=== PATIENT | male | born 1955 | race Caucasian/White ===

== ENCOUNTER 2019-03-19 11:37 | Inpatient (IN) | payer OTHER ==
[~2019-03-19] VITALS: Ht 185.4 cm; Wt 101.2 kg
--- NOTE | ~2019-03-19 | CATHLAB ---
[facility] [address] [address] [place] [address] INVASIVE PROCEDURE REPORT Name: FRENCH HARDY Room #: 210-P ADM IN M.R.#: [id number] ������������� Admission: 03/19/19 ������������� Attend Phys: Neftaly Gramajo MD Discharge: ��� ������������� ��� Date of : 53 Date of Service: 03/20/19 0951 �� Report #: [id number] �������� ��������������������������������������������[id number] THIS REPORT FOR: //name// CC: Neftaly Alvarez PROCEDURE: Cardioversion. INDICATION: Atrial flutter. DESCRIPTION OF PROCEDURE: The potential benefits and risks of the procedure were discussed at length with the patient who understood. Full written and informed consent was obtained. The patient was sedated with intravenous Versed and fentanyl. 30 biphasic synchronous joules were applied to the chest with prompt conversion of atrial flutter to sinus rhythm. He remained in hemodynamically, electrically and neurologically stable condition following the procedure. ��������������������������������������������� ���������������������������������������� By: ��������������������������������������������� 0951 1342 Felice Cates MD, FACC /nt
[2019-03-19 11:37] VITALS: BP 153/116
[2019-03-19 12:35] LABS: BASOPHILS 0.4 % (0.0-2.0); EOSINOPHILS 1.4 % (0.0-3.0); HEMATOCRIT 43.2 % (42.0-52.0); HEMOGLOBIN 14.8 gm/dL (14.0-18.0); LYMPHOCYTES 16.3 % (24.0-44.0); MCH 33.7 pg (26.0-34.0); MCHC 34.3 g/dL (28.0-37.0); MCV 98.1 fL (80.0-100.0); MONOCYTES 9.4 % (1.0-8.0); PLATELET COUNT 178 thou/uL (150-400); POLYS 72.5 % (36.0-66.0); RBC 4.41 mil/uL (4.50-6.00); WBC 5.5 thou/uL (4.0-11.0)
[2019-03-19 12:47] LABS: ANION GAP 12 mmol/L (7-16); BUN 17 mg/dL (7-18); CALCIUM 9.1 mg/dL (8.5-10.1); CHLORIDE 107 mmol/L (98-107); CO2 23 mmol/L (21-32); GLUCOSE 95 mg/dL (74-106); POTASSIUM 4.1 mmol/L (3.5-5.1); SODIUM 142 mmol/L (136-145)
[2019-03-19 12:57] LABS: ALBUMIN 3.8 g/dL (3.4-5.0); MAGNESIUM 2.2 mg/dL (1.8-2.4); SGOT 35 U/L (15-37); SGPT 35 U/L (30-65); TOTAL BILIRUBIN 1.4 mg/dL (<0.1-1.0); TOTAL PROTEIN 7.8 g/dL (6.4-8.2); TROPONIN-I <0.06 ng/mL (<0.06)
[2019-03-19 13:52] VITALS: BP 122/81
[2019-03-19 13:53] VITALS: BP 143/93
[2019-03-19] MEDS ORDERED: COUMADIN 5 MG TA5 M1 PO (14:06)
[2019-03-19] MEDS ORDERED: LIPITOR 20 MG T20 M1 PO (14:07)
[2019-03-19 14:54] LABS: INR 2.7; PROTIME 28.5 Seconds (9.3-11.4)
[2019-03-19 15:00] VITALS: BP 145/80
--- NOTE | 2019-03-19 16:58 | 2DMMODE ---
[facility] [address] [place] [address] 2 D/M-MODE ECHOCARDIOGRAM Name: FRENCH HARDY Room #: 210-P ADM IN .R.#: [id number] ������������� Admission: 03/19/19 ������������� Attend Phys: Inocencio Valladares, Discharge: ��� ������������� ��� Date of : 53 Date of Service: 03/19/19 1657 �� Report #: [id number] �������� ��������������������������������������������[id number] THIS REPORT FOR: //name// APPROVED REPORT Study performed: 03/19/2019 15:28:12 EXAM: Comprehensive 2D, Doppler, and color-flow Echocardiogram Patient Location: In-Patient Room #: 210 Status: routine BSA: 2.21 HR: 106 bpm BP: 143/93 mmHg Rhythm: Atrial Fibrillation Other Information Study Quality: Good Indications Atrial Fibrillation 2D Dimensions RVDd: 40.95 mm IVSd: 17.48 (7-11mm) LVOT Diam: 22.17 (18-24mm) LVDd: 40.17 mm PWd: 9.64 (7-11mm) Ascending Ao: 34.47 (22-36mm) LVDs: 27.70 (25-40mm) Aortic Root: 41.70 mm Volumes Left Atrial Volume (Systole) Single Plane 4CH: 76.77 mL Single Plane 2CH: 90.97 mL LA ESV Index: 41.00 mL/m2 Aortic Valve AoV Peak Satish.: 1.24 m/s AO Peak Gr.: 9.56 mmHg LVOT Max P.52 mmHg LVOT Max V: 1.05 m/s SELWYN Vmax: 3.27 cm2 Pulmonary Valve PV Peak Satish.: 0.79 m/s PV Peak Gr.: 2.48 mmHg Tricuspid Valve [facility] [address] [address] 2 D/M-MODE ECHOCARDIOGRAM Name: FRENCH HARDY Room #: 210-P ADM IN ..#: [id number] ������������� Admission: 03/19/19 ������������� Attend Phys: Inocencio Valladares, Discharge: ��� ������������� ��� Date of : 53 Date of Service: 03/19/19 1657 �� Report #: [id number] �������� ��������������������������������������������[id number] TR Peak Satish.: 2.25 m/s TR Peak Gr.: 20.68 mmHg RVSP: 15.00 mmHg PA Pressure: 35.00 mmHg Left Ventricle The left ventricle is normal size. There is normal LV segmental wall motion. There is normal left ventricular wall thickness. The left ventricular systolic function is normal. The left ventricular ejection fraction is within the normal range. LVEF is 55-60%. This study is not technically sufficient to allow evaluation of the LV diastolic function due to atrial fibrillation. Right Ventricle The right ventricle is normal size. The right ventricular systolic function is normal. Atria Left atrium is dilated. Right atrium is dilated. Aortic Valve The aortic valve is mildly calcified No aortic regurgitation is present. There is no aortic valvular stenosis. Mitral Valve The mitral valve is normal in structure. Moderate mitral regurgitation. No evidence of mitral valve stenosis. Tricuspid Valve The tricuspid valve is normal in structure. Mild to moderate tricuspid regurgitation. Estimated PAP is 35mmHg Pulmonic Valve The pulmonary valve is normal in structure. Trace pulmonic regurgitation. Great Vessels The aortic root is normal in size. The inferior vena cava is dilated with no inspiratory collapse. Pericardium There is no pericardial effusion. <Conclusion> The left ventricular systolic function is normal. There is normal LV segmental wall motion. LVEF is 55-60%. [facility] [address] [place] [address] 2 D/M-MODE ECHOCARDIOGRAM Name: FRENCH HARDY Room #: 210-P ADM IN M.R.#: [id number] ������������� Admission: 03/19/19 ������������� Attend Phys: Inocencio Valladares, Discharge: ��� ������������� ��� Date of : 53 Date of Service: 03/19/191656 �� Report #: [id number] �������� ��������������������������������������������[id number] Both atria are dilated. The aortic valve is mildly calcified. No aortic regurgitation or stenosis. The mitral valve is normal in structure. Moderate mitral regurgitation. Mild to moderate tricuspid regurgitation. Estimated pulmonary artery pressure of 35mmHg There is no pericardial effusion. ��������������������������������������������� <ELECTRONICALLY SIGNED> ���������������������������������������� By: Felice Cates MD, [facility] ��������������������������������������������� 03/19/191656 56 1657 Felice Cates MD, FACC /INF
--- NOTE | 2019-03-19 18:34 | NUR ---
Pt came up to unit approx 1500. On cardizem drip. Alert and oriented x4. Was sent from [facility]. Cardiology consulted. Warfarin administered. Will continue to monitor and assist with needs.
[2019-03-19 20:42] VITALS: BP 114/80
[2019-03-20 03:50] VITALS: BP 101/75
[2019-03-20 04:51] LABS: ABSOLUTE NEUTROPHILS 4.8 thou/uL (1.4-8.2); BASOPHILS 0.2 % (0.0-2.0); EOSINOPHILS 1.4 % (0.0-3.0); HEMATOCRIT 42.6 % (42.0-52.0); HEMOGLOBIN 14.2 gm/dL (14.0-18.0); LYMPHOCYTES 11.3 % (24.0-44.0); MCH 33.3 pg (26.0-34.0); MCHC 33.3 g/dL (28.0-37.0); MCV 100.1 fL (80.0-100.0); MONOCYTES 5.9 % (1.0-8.0); PLATELET COUNT 170 thou/uL (150-400); POLYS 81.2 % (36.0-66.0); RBC 4.25 mil/uL (4.50-6.00); RDW 13.2 % (10.5-14.5); WBC 5.9 thou/uL (4.0-11.0)
[2019-03-20 05:09] LABS: ANION GAP 11 mmol/L (7-16); BUN 16 mg/dL (7-18); CALCIUM 8.7 mg/dL (8.5-10.1); CHLORIDE 106 mmol/L (98-107); CO2 24 mmol/L (21-32); CREATININE 1.1 mg/dL (0.7-1.3); GLUCOSE 136 mg/dL (74-106); MAGNESIUM 2.2 mg/dL (1.8-2.4); SODIUM 141 mmol/L (136-145); TROPONIN-I <0.06 ng/mL (<0.06)
[2019-03-20 05:50] LABS: AMP/METHAMP Negative (Negative); BARBITURATES Negative (Negative); BENZODIAZEPINES Negative (Negative); COCAINE Negative (Negative); METHADONE Negative (Negative); OPIATES Negative (Negative); PCP Negative (Negative)
--- NOTE | 2019-03-20 07:25 | EKG ---
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 : 1955 Requested By: Arnol Hagan Order Number: [id number] MD: Felice Cates Measurements Intervals [place] Rate: 137 P: [place]: QRS: -30 QRSD: 117 T: -34 QT: 336 QTc: 508 Interpretive Statements Atrial flutter with 2:1 AV conduction Incomplete right bundle branch block Cannot rule out inferior infarct age indeterminate No previous ECG available for comparison Electronically Signed On 03-20-2019 7:24:55 CDT by Felice Cates [email or web address] ��������������������������������������������� <ELECTRONICALLY SIGNED> ���������������������������������������� By: Felice Cates MD, [facility] ��������������������������������������������� 03/20/19 0724 1142 1142 Felice Cates MD, [facility] /EPI
--- NOTE | 2019-03-20 07:34 | EKG ---
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 ��������������������������������������������� 03/20/19733 31 31 Felice Cates MD, [facility] /EPI
--- NOTE | 2019-03-20 07:53 | EKG ---
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 ��������������������������������������������� <ELECTRONICALLY SIGNED> ���������������������������������������� By: Sherwin Veloz MD ��������������������������������������������� 03/20/19 0753 0733 Sherwin Veloz MD /EPI
[2019-03-20 08:04] VITALS: BP 113/90
--- NOTE | 2019-03-20 08:05 | NUR ---
ASSESSMENTS CHARTED. PATIENT NPO EXCEPT MEDS SINCE MIDNIGHT IN CASE CARDIOVERSION IS NEEDED. PATIENT STILL IN A-FLUTTER THIS MORNING, CARDIZEM WEENED OFF DURING NIGHT. PLAN OF CARE IS TO DO CARDIOVERSION TODAY.
[2019-03-20 12:00] VITALS: BP 114/84
[2019-03-20] MEDS ORDERED: METOPROLOL SUCC25 M1 PO (13:51)
[2019-03-20 14:51] VITALS: BP 114/84
--- NOTE | 2019-03-20 18:29 | NUR ---
ASSUMED CARE OF PATIENT AT 0700. PATIENT IS RESTING IN COMFORTABLY IN BED WITH HIS AT THE BEDSIDE. PATIENT IS ANXIOUS TO BE DISCHARGED. HE STATES THAT HE FEELS BETTER THAN HE DID WHEN HE ARRIVED. DR. PALMER APPROVED HIS DISCHARGE. PRINTED PRESCRIPTION WAS GIVEN TO THE PATIENT WITH INFORMATION SHEET. IV AND TELE REMOVED. RESTRICTIONS WERE GIVEN TO THE PATIENT ALONG WITH FOLLOW UP INFORMATION. PATIENT WAS WHEELED OUT TO THE MAIN ENTRANCE AND DRIVEN HOME BY HIS .
--- NOTE | 2019-03-21 08:16 | EKG ---
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 : 1955 Requested By: Felice Cates Order Number: [id number] MD: Felice Cates Measurements Intervals [place] Rate: 68 P: 49 [place]: 225 QRS: 33 QRSD: 124 T: 27 QT: 472 QTc: 503 Interpretive Statements Sinus rhythm Prolonged [place] interval Right ventricular conduction delay Early repolarization Compared to ECG 03/20/2019 07:33:20 sinus rhythm has replaced atrial flutter Electronically Signed On 03-21-2019 8:16:36 CDT by Felice Cates [email or web address] ��������������������������������������������� <ELECTRONICALLY SIGNED> ���������������������������������������� By: Felice Cates MD, [facility] ��������������������������������������������� 03/21/19 0816 1024 1024 Felice Cates MD, [facility] /EPI
== END 2019-03-20 15:30 | disposition home or self-care (01) | DRG 310 ==
LOC: ER 11:37 → EROBS 13:21 → 2N 13:21
PROVIDERS: Emergency Medicine; Nurse Practitioner; ADMIT Hospitalist
PROC: 5A2204Z Restoration of Cardiac Rhythm, Single (ICD-10-PCS; principal; 2019-03-19)
DX: I48.1 Persistent atrial fibrillation (principal); I48.92 Unspecified atrial flutter; E78.5 Hyperlipidemia, unspecified; Z86.718 Personal history of other venous thrombosis and embolism; Z79.01 Long term (current) use of anticoagulants; Z79.82 Long term (current) use of aspirin; Z79.899 Other long term (current) drug therapy; Z83.3 Family history of diabetes mellitus; Z82.49 Family history of ischemic heart disease and other diseases of the circulatory system; Z81.1 Family history of alcohol abuse and dependence; Z80.3 Family history of malignant neoplasm of breast; Z87.891 Personal history of nicotine dependence
CPT/HCPCS: 10081

== ENCOUNTER → 2020-05-27 | Outpatient (CLI) | payer OTHER ==
[~2020-05-27] MED LIST: COUMADIN 5 MG TA5 M1 PO; LIPITOR 20 MG T20 M1 PO; METOPROLOL SUCC25 M1 PO
== END ==
LOC: SJCVCIMAG 07:24
PROVIDERS: ATTEND Internal Medicine Cardiovascular Disease
DX: R94.31 Abnormal electrocardiogram [ECG] [EKG] (principal); I08.3 Combined rheumatic disorders of mitral, aortic and tricuspid valves; I48.92 Unspecified atrial flutter; R93.1 Abnormal findings on diagnostic imaging of heart and coronary circulation; D68.59 Other primary thrombophilia

== ENCOUNTER → 2020-07-08 | Outpatient (CLI) | payer OTHER | LOC: SJCVC 14:31 | PROVIDERS: ATTEND Internal Medicine Cardiovascular Disease | DX: R94.31 Abnormal electrocardiogram [ECG] [EKG] (principal); R00.0 Tachycardia, unspecified; I48.3 Typical atrial flutter ==

== ENCOUNTER → 2020-07-28 | Outpatient (CLI) | payer OTHER ==
[~2020-07-28] VITALS: Ht 185.4 cm; Wt 105.2 kg
[~2020-07-28] MED LIST changes: +PREDNISONE 20 M20 MG PO; +XARELTO20 MG PO
[2020-07-28 07:17] VITALS: BP 148/93
[2020-07-28 07:31] LABS: ABSOLUTE NEUTROPHILS 2.9 thou/uL (1.4-8.2); BASOPHILS 0.4 % (0.0-2.0); EOSINOPHILS 3.5 % (0.0-3.0); HEMOGLOBIN 15.6 gm/dL (14.0-18.0); LYMPHOCYTES 24.7 % (24.0-44.0); MCH 32.7 pg (26.0-34.0); MCHC 33.2 g/dL (28.0-37.0); MCV 98.6 fL (80.0-100.0); MONOCYTES 9.1 % (1.0-8.0); PLATELET COUNT 152 thou/uL (150-400); POLYS 62.3 % (36.0-66.0); RBC 4.76 mil/uL (4.50-6.00); WBC 4.6 thou/uL (4.0-11.0)
[2020-07-28 07:46] LABS: CALCIUM 8.7 mg/dL (8.5-10.1); CREATININE 1.2 mg/dL (0.7-1.3); POTASSIUM 4.2 mmol/L (3.5-5.1)
[2020-07-28 07:48] LABS: APTT 27.1 Seconds (24.5-32.8)
[2020-07-28 07:52] LABS: ALBUMIN 3.7 g/dL (3.4-5.0); TOTAL BILIRUBIN 1.1 mg/dL (0.2-1.0); TOTAL PROTEIN 7.4 g/dL (6.4-8.2)
--- NOTE | 2020-07-29 08:44 | P ---
[facility] [place] [address] PROCEDURE REPORT Name: FRENCH HARDY Room #: REG ISRAEL Olivia.#: [id number] Admission: 07/28/20 Attend Phys: Sherwin Veloz MD Discharge: Date of : 53 Report #: [id number] THIS REPORT FOR: cc: Maximino Alvarez MD,Sherwin Gee MD, MD ~ CC: Sherwin Alvarez DATE OF SERVICE: 07/28/2020 PREOPERATIVE DIAGNOSIS: Typical atrial flutter. POSTOPERATIVE DIAGNOSIS: Typical atrial flutter. HISTORY: The patient is a 64-year-old with recurrent atrial flutter, here for ablation. PROCEDURES PERFORMED: 1. SVT ablation, CPT code 69604. 2. Left atrial pacing and recording, CPT code 85457. 3. Intracardiac echo, CPT code 79290. 4. 3D mapping, CPT code 65466. ANESTHESIA: The patient underwent MAC anesthesia with no anesthesia related complications. DESCRIPTION OF PROCEDURE: The patient underwent informed consent. We discussed the details of the procedure including the risks, which include but not limited to bleeding, vascular damage, stroke, [place] as well as damage to the knik conduction system requiring permanent pacemaker. The patient understood these risks and is willing to proceed. The patient was brought to EP laboratory in fasting and sedated state, prepped and draped in a standard fashion. I injected lidocaine at the right groin, obtained access to the right femoral vein x 3, placing an 8, 9 and 7-Kyrgyz short sheath. Next, under fluoroscopy, I placed an ICE catheter in the right atrium and a decapolar catheter easily in the coronary sinus. Using intracardiac ultrasound, I created a detailed 3D geometry of the right atrium. I noted that the left atrium was within normal sized with two left and two right pulmonary veins. He had a nice thin interatrial septum. I then italo line along the cavotricuspid isthmus, which was quite long in duration, but had no unusual anatomic findings. At baseline, the patient was in atrial flutter with an atrial cycle length of 240 milliseconds of the proximal and distal activation along the CS atrial cycle [facility] [address] [place] [address] PROCEDURE REPORT Name: FRENCH HARDY Room #: REG [facility].#: [id number] Admission: 07/28/20 Attend Phys: Sherwin Veloz MD Discharge: Date of : 53 Report #: [id number] length of 240 milliseconds. The ventricular cycle length was 530 milliseconds with a QRS duration of 90 milliseconds, QT interval 400 milliseconds, and HV interval 48 milliseconds. There was negative sawtooth flutter waves in the inferior leads. Next, I placed an 8 mm ablation catheter into the right atrium and created a detailed 3D geometry of the right atrium and created an activation map, which demonstrated the patient had typical atrial flutter. I performed pacing along the cavotricuspid isthmus and the PPI minus tachycardia cycle length was 25 milliseconds consistent with cavotricuspid isthmus dependent flutter. 3D MAPPING AND ABLATION: Next, a detailed 3D geometry of the area of ablation was created and then ablation was performed at 70 fam 60 degrees using an 8-mm Biosense Zuniga ablation catheter via a ramp sheath. As I reached the distal third of the isthmus, there was termination of the atrial flutter. I continued ablating until I __ into the IVC. I then performed additional ablation and then I checked her for block. Initially did not appear that we had bidirectional block as the transisthmus conduction time was short at around 120 milliseconds and a differential pacing with the ablation catheter demonstrated that there was not block across the isthmus. I then performed pacing from CS 9, 10 and measured the double potentials along my ablation lesion set and along the distal third, there was very narrow double potentials. Therefore, I went back on with ablation at 70 fam 60 degrees and performed additional ablation just medial and lateral to my prior ablation lesion set along the mid and distal third of the isthmus. Then, a repeat testing was performed and other transisthmus conduction time was 160 milliseconds and differential pacing demonstrated there was no evidence of bidirectional block. A basic EP study was performed and AV block was noted at 400 milliseconds. AV elijah and ERP was noted at 370 milliseconds at a [address] cycle length. Aggressive atrial burst pacing down to 250 milliseconds was performed and I did not induce any SVT, AFib or atrial flutter. Repeat testing for block demonstrated a transisthmus conduction time remained along at 160 milliseconds. As such, the procedure was concluded. The patient remained in sinus rhythm with sinus cycle length of 855 milliseconds, OH interval 220 milliseconds, QRS duration 100 milliseconds, QT interval 420 milliseconds. As such, catheters and sheaths were pulled. Hemostasis was obtained and I verified there was no pericardial effusion using intracardiac ultrasound. CONCLUSIONS: 1. Successful ablation of counterclockwise cavotricuspid isthmus dependent flutter with evidence of bidirectional block. 2. Normal SA elijah function. 3. Normal AV elijah function. [facility] [address] [address] PROCEDURE REPORT Name: FRENCH HARDY Room #: JUAN LUIS Leslie#: [id number] Admission: 07/28/20 Attend Phys: Sherwin Veloz MD Discharge: Date of : 53 Report #: [id number] 4. Normal His-Purkinje function. 5. No other inducible arrhythmias on post-ablation EP study. <ELECTRONICALLY SIGNED> By: Sherwin Veloz MD 07/29/20 0844 1317 Sherwin Veloz MD /nt
== END | disposition home or self-care (01) ==
LOC: CATH 06:28
PROVIDERS: ATTEND Internal Medicine Cardiovascular Disease
DX: I48.3 Typical atrial flutter (principal); E78.5 Hyperlipidemia, unspecified; I48.91 Unspecified atrial fibrillation; E66.09 Other obesity due to excess calories; Z98.890 Other specified postprocedural states; Z79.899 Other long term (current) drug therapy
CPT/HCPCS: 62110; 62900; 70005

== ENCOUNTER 2020-07-29 02:23 | Inpatient (IN) | payer OTHER ==
[~2020-07-29] VITALS: Ht 185.4 cm; Wt 107.0 kg
[~2020-07-29 02:23] MED LIST changes: -PREDNISONE 20 M20 MG PO
[2020-07-29 02:44] VITALS: BP 138/93
[2020-07-29 03:05] LABS: ABSOLUTE NEUTROPHILS 5.4 thou/uL (1.4-8.2); BASOPHILS 0.4 % (0.0-2.0); EOSINOPHILS 2.3 % (0.0-3.0); HEMATOCRIT 46.4 % (42.0-52.0); HEMOGLOBIN 15.5 gm/dL (14.0-18.0); LYMPHOCYTES 18.2 % (24.0-44.0); MCH 33.4 pg (26.0-34.0); MCHC 33.4 g/dL (28.0-37.0); MCV 100.2 fL (80.0-100.0); PLATELET COUNT 141 thou/uL (150-400); POLYS 73.1 % (36.0-66.0); RBC 4.64 mil/uL (4.50-6.00); RDW 13.1 % (10.5-14.5); WBC 7.4 thou/uL (4.0-11.0)
[2020-07-29 03:11] LABS: CALCIUM 8.9 mg/dL (8.5-10.1); CREATININE 1.4 mg/dL (0.7-1.3); POTASSIUM 3.8 mmol/L (3.5-5.1)
[2020-07-29 03:20] LABS: TROPONIN-I 0.42 ng/mL (<0.06)
[2020-07-29 05:12] VITALS: BP 138/90
[2020-07-29 05:45] VITALS: BP 128/75
[2020-07-29 05:50] VITALS: BP 139/99
--- NOTE | 2020-07-29 06:47 | NUR ---
PATIENT WAS A NEW ADMISSION TO THE UNIT THIS SHIFT. HE ARRIVED VIA CART FROM THE ER AND WAS ABLE TO AMBULATE TO THE BED INCIDENT FREE. PATIENT IS ALERT AND ORIENTED AND ABLE TO PARTICIPATE IN ADMISSION AND CALL APPROPRIATELY FOR NEEDS. CHIEF COMPLAINT IS CHEST PAIN. PATIENT INSTRUCTED TO CALL PROMPTLY FOR THAT PAIN OR ANY S/S OF DC. NURSE TO COMPLETE ADMISSION PROCESS AND INITIATE PLAN OF CARE.
--- NOTE | 2020-07-29 07:56 | EKG ---
[facility] [address] [address] ELECTROCARDIOGRAM REPORT Name: FRENCH HARDY Room #: 208-P ADM IN M.R.#: [id number] Admission: 07/29/20 Attend Phys: Daniel Collins MD Discharge: Date of : 53 Report #: [id number] THIS REPORT FOR: cc: Maximino Alvarez MD, Tom E. MD Santiago,Inder CHAUDHRY 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 <ELECTRONICALLY SIGNED> By: Inder Verma MD, [facility] 07/29/20 0756 0 0 Inder Verma MD, [facility] /EPI
[2020-07-29 08:23] LABS: CHOLESTEROL 125 mg/dL (<200); HDL CHOLESTEROL 51 mg/dL (>40); LDL CHOLESTEROL 61 mg/dL (<100); TC:HDL 2.5 Ratio (Not establshd); TRIGLYCERIDE 67 mg/dL (<150); VLDL 13 mg/dL (<40)
[2020-07-29] MEDS ORDERED: PREDNISONE 20 M20 MG PO (08:27)
--- NOTE | 2020-07-29 08:56 | 2DMMODE ---
[facility] [place] [address] 2 D/M-MODE ECHOCARDIOGRAM Name: FRENCH HARDY Room #: 208-P ADM IN M.R.#: [id number] Admission: 07/29/20 Attend Phys: Daniel Collins MD Discharge: Date of : 53 Report #: [id number] THIS REPORT FOR: cc: Maximino Alvarez MD, Tom E. MD Santiago, Patrick MD [facility] ~ APPROVED REPORT Study performed: 07/29/2020 08:16:51 EXAM: Limited 2D, Doppler, and color-flow Echocardiogram Patient Location: Bedside Room #: 208 Status: routine BSA: 2.22 HR: 75 bpm BP: 139/99 mmHg Rhythm: Sinus arrhythmia, RBBB Indications Chest pain s/p a-flutter ablation. Limited echo to rule out pericardial effusion and for LV function. Tricuspid Valve TR Peak Satish.: 2.12 m/s RAP Estimate: 15.00 mmHg TR Peak Gr.: 18.02 mmHg PA Pressure: 33.00 mmHg Left Ventricle The left ventricle is normal size. Left ventricular systolic function is mildly decreased. LVEF is 45%. Right Ventricle Right ventricle is dilated. Right ventricle is hypokinetic. Atria Left atrium is dilated. Right atrium is dilated. Aortic Valve The aortic valve is normal in structure. No aortic regurgitation is present. There is no aortic valvular stenosis. Mitral Valve The mitral valve is normal in structure. Moderate mitral [facility] [address] [place] [address] 2 D/M-MODE ECHOCARDIOGRAM Name: FRENCH HARDY Room #: 208-P ADM IN M.R.#: [id number] Admission: 07/29/20 Attend Phys: Kaitlin Lange Discharge: Date of : 53 Report #: [id number] regurgitation. Tricuspid Valve The tricuspid valve is normal in structure. Moderate tricuspid regurgitation. Estimated PAP is 30-35mmHg. Great Vessels IVC is dilated and collapses <50% with inspiration. Pericardium There is no pericardial effusion. <Conclusion> Normal left ventricular size and wall thickness Mild global hypokinesis, ejection fraction 45% Right ventricle mildly dilated and mildly hypokinetic Mild biatrial enlargement Moderate, central mitral valve insufficiency Moderate tricuspid valve insufficiency Pulmonary artery systolic pressure estimated at 35 mmHg No pericardial effusion <ELECTRONICALLY SIGNED> By: Inder Verma MD, FACC 07/29/20854 4 4 Inder Verma MD, FACC /INF
[2020-07-29 09:10] VITALS: BP 127/88
[2020-07-29 13:46] VITALS: BP 139/99
== END 2020-07-29 14:35 | disposition home or self-care (01) | DRG 281 ==
LOC: ER 02:23 → EROBS 04:58 → 2N 04:58
PROVIDERS: Emergency Medicine; Nurse Practitioner; ADMIT Hospitalist; ATTEND Hospitalist
DX: I21.4 Non-ST elevation (NSTEMI) myocardial infarction (principal); I48.92 Unspecified atrial flutter; N17.9 Acute kidney failure, unspecified; I31.9 Disease of pericardium, unspecified; E78.5 Hyperlipidemia, unspecified; I25.10 Atherosclerotic heart disease of native coronary artery without angina pectoris; I45.10 Unspecified right bundle-branch block; D69.6 Thrombocytopenia, unspecified; Z86.718 Personal history of other venous thrombosis and embolism; Z87.891 Personal history of nicotine dependence; Z82.49 Family history of ischemic heart disease and other diseases of the circulatory system; Z81.1 Family history of alcohol abuse and dependence; Z80.3 Family history of malignant neoplasm of breast
CPT/HCPCS: 10081

== ENCOUNTER → 2020-08-04 | Outpatient (CLI) | payer OTHER ==
[~2020-08-04] MED LIST changes: +PREDNISONE 20 M20 MG PO
== END ==
LOC: SJCVC 13:34
PROVIDERS: ATTEND Internal Medicine Cardiovascular Disease
DX: I48.92 Unspecified atrial flutter (principal); R94.31 Abnormal electrocardiogram [ECG] [EKG]; R00.1 Bradycardia, unspecified; I31.9 Disease of pericardium, unspecified; I48.91 Unspecified atrial fibrillation; E78.5 Hyperlipidemia, unspecified; Z79.899 Other long term (current) drug therapy; Z87.891 Personal history of nicotine dependence

== ENCOUNTER → 2020-10-27 | Outpatient (CLI) | payer OTHER | LOC: SJCVC 13:40 | PROVIDERS: ATTEND Internal Medicine Cardiovascular Disease | DX: I48.3 Typical atrial flutter (principal); I48.91 Unspecified atrial fibrillation; E78.5 Hyperlipidemia, unspecified; E66.9 Obesity, unspecified; Z86.718 Personal history of other venous thrombosis and embolism; Z79.899 Other long term (current) drug therapy; Z87.891 Personal history of nicotine dependence; Z98.890 Other specified postprocedural states; Z82.49 Family history of ischemic heart disease and other diseases of the circulatory system ==

== ENCOUNTER → 2021-01-12 | Outpatient (CLI) | payer OTHER | LOC: SJCVC 14:08 | PROVIDERS: ATTEND Internal Medicine Cardiovascular Disease | DX: I47.1 Supraventricular tachycardia (principal); E78.5 Hyperlipidemia, unspecified; E66.9 Obesity, unspecified; Z79.01 Long term (current) use of anticoagulants; Z79.899 Other long term (current) drug therapy; Z87.891 Personal history of nicotine dependence; Z72.89 Other problems related to lifestyle ==

== ENCOUNTER → 2021-01-25 | Outpatient (CLI) | payer OTHER | LOC: SJCVCIMAG 01-20 12:40 | PROVIDERS: ATTEND Internal Medicine Cardiovascular Disease | DX: I08.3 Combined rheumatic disorders of mitral, aortic and tricuspid valves (principal); I10 Essential (primary) hypertension; I49.9 Cardiac arrhythmia, unspecified ==

== ENCOUNTER → 2021-05-19 | Outpatient (CLI) | payer OTHER | LOC: SJCVC 15:21 | PROVIDERS: ATTEND Internal Medicine Cardiovascular Disease | DX: I45.4 Nonspecific intraventricular block (principal); R94.31 Abnormal electrocardiogram [ECG] [EKG]; I47.1 Supraventricular tachycardia; I48.3 Typical atrial flutter; E78.5 Hyperlipidemia, unspecified; E66.9 Obesity, unspecified; Z79.899 Other long term (current) drug therapy; Z86.718 Personal history of other venous thrombosis and embolism; Z87.891 Personal history of nicotine dependence; Z82.49 Family history of ischemic heart disease and other diseases of the circulatory system ==

== ENCOUNTER → 2021-11-23 | Outpatient (CLI) | payer OTHER | LOC: SJCVC 14:58 | PROVIDERS: ATTEND Internal Medicine Cardiovascular Disease | DX: R94.31 Abnormal electrocardiogram [ECG] [EKG] (principal); I45.19 Other right bundle-branch block; I47.1 Supraventricular tachycardia; I48.3 Typical atrial flutter; I48.91 Unspecified atrial fibrillation; E78.5 Hyperlipidemia, unspecified; Z82.49 Family history of ischemic heart disease and other diseases of the circulatory system; Z87.891 Personal history of nicotine dependence; Z72.89 Other problems related to lifestyle; Z79.899 Other long term (current) drug therapy ==